=== PATIENT | male | born 1985 | race Caucasian/White ===

== ENCOUNTER 2017-04-06 20:03 | Inpatient (IN) | payer BC ==
--- NOTE | 2017-04-06 20:23 | ED ---
Psych HPI - General Source: patient, police, RN notes reviewed Mode of arrival: ambulatory Limitations: no limitations <Oli Moore - Last Filed: 04/06/17 22:22> <Tristen Iyer - Last Filed: 04/07/17 15:05> - General Chief Complaint: Psychiatric Symptoms Stated Complaint: Mental Health Time Seen by Provider: 04/06/17 20:13 - History of Present Illness Initial Comments: This a 31-year-old male presents emergency Department with a [facility] for psychiatric evaluation. Patient apparently tested his where he could be found . Patient was found in family barn with a gun. Patient did state that he was initiated himself. Patient states that he is depressed over his infidelity. Patient states he has not have a history of depression or any psychiatric issues. Denies any illicit drug use or alcohol abuse. Denies any physical complaints. (Oli Moore) - Related Data Home Medications Medication Instructions Recorded Confirmed No Known Home Medications [No 04/06/17 04/06/17 Known Home Medications] Allergies Allergy/AdvReac Type Severity Reaction Status Date / Time No Known Allergies Allergy Verified 04/06/17 20:25 Review of Systems ROS Other: All systems not noted in ROS Statement are negative. <Oli Moore - Last Filed: 04/06/17 22:22> ROS Other: All systems not noted in ROS Statement are negative. <Tristen Iyer - Last Filed: 04/07/17 15:05> ROS Statement: Those systems with pertinent positive or pertinent negative responses have been documented in the HPI. Past Medical History Additional Past Medical History / Comment(s): left leg injury. History of Any Multi-Drug Resistant Organisms: None Reported Additional Past Surgical History / Comment(s): left knee fusion Past Psychological History: No Psychological Hx Reported Smoking Status: Current every day smoker Past Alcohol Use History: None Reported Past Drug Use History: None Reported <Oli Moore - Last Filed: 04/06/17 22:22> General Exam Limitations: no limitations General appearance: alert, in no apparent distress Head exam: Present: atraumatic, normocephalic, normal inspection Eye exam: Present: normal appearance, PERRL, EOMI. Absent: scleral icterus, conjunctival injection, periorbital swelling ENT exam: Present: normal exam, normal oropharynx, mucous membranes moist, TM's normal bilaterally, normal external ear exam Neck exam: Present: normal inspection, full ROM. Absent: tenderness, meningismus, lymphadenopathy Respiratory exam: Present: normal lung sounds bilaterally. Absent: respiratory distress, wheezes, rales, rhonchi, stridor Cardiovascular Exam: Present: regular rate, normal rhythm, normal heart sounds. Absent: systolic murmur, diastolic murmur, rubs, gallop, clicks Neurological exam: Present: alert, oriented X3, CN II-XII intact Psychiatric exam: Present: flat affect Skin exam: Present: warm, dry, intact, normal color. Absent: rash <Oli Moore - Last Filed: 04/06/17 22:22> Medical Decision Making <Oli Moore - Last Filed: 04/06/17 22:22> - Lab Data Result diagrams: 04/06/17 23:06 04/06/17 23:06 <Tristen Iyer - Last Filed: 04/07/17 15:05> - Medical Decision Making Case is discussed with EPS, patient will be admitted for inpatient psychiatric care. Diagnosis: Depression, suicidal ideation (Tristen Iyer) - Lab Data Lab Results 04/06/17 04/06/17 04/06/17 Range/Units 21:10 23:06 23:06 WBC 10.0 (3.8-10.6) k/uL RBC 5.21 (4.30-5.90) m/uL Hgb 15.7 (13.0-17.5) gm/dL Hct 47.3 (39.0-53.0) % MCV 90.7 (80.0-100.0) fL MCH 30.1 (25.0-35.0) pg MCHC 33.2 (31.0-37.0) g/dL RDW 14.3 (11.5-15.5) % Plt Count 255 (150-450) k/uL Neutrophils % 59 % Lymphocytes % 32 % Monocytes % 6 % Eosinophils % 1 % Basophils % 1 % Neutrophils # 5.9 (1.3-7.7) k/uL Lymphocytes # 3.2 (1.0-4.8) k/uL Monocytes # 0.6 (0-1.0) k/uL Eosinophils # 0.1 (0-0.7) k/uL Basophils # 0.1 (0-0.2) k/uL Sodium 140 (137-145) mmol/L Potassium 4.2 (3.5-5.1) mmol/L Chloride 103 (98-107) mmol/L Carbon Dioxide 26 (22-30) mmol/L Anion Gap 11 mmol/L BUN 13 (9-20) mg/dL Creatinine 0.80 (0.66-1.25) mg/dL Est GFR (MDRD) Af Amer >60 (>60 ml/min/1.73 sqM) Est GFR (MDRD) Non-Af >60 (>60 ml/min/1.73 sqM) Glucose 94 (74-99) mg/dL Calcium 9.6 (8.4-10.2) mg/dL Total Bilirubin 0.5 (0.2-1.3) mg/dL AST 22 (17-59) U/L ALT 46 (21-72) U/L Alkaline Phosphatase 83 (38-126) U/L Total Protein 7.0 (6.3-8.2) g/dL Albumin 4.2 (3.5-5.0) g/dL Urine Opiates Screen Not Detected (NotDetected) Ur Oxycodone Screen Not Detected (NotDetected) Urine Methadone Screen Not Detected (NotDetected) Ur Propoxyphene Screen Not Detected (NotDetected) Ur Barbiturates Screen Not Detected (NotDetected) U Tricyclic Antidepress Not Detected (NotDetected) Ur Phencyclidine Scrn Not Detected (NotDetected) Ur Amphetamines Screen Not Detected (NotDetected) U Methamphetamines Scrn Not Detected (NotDetected) U Benzodiazepines Scrn Not Detected (NotDetected) Urine Cocaine Screen Not Detected (NotDetected) U Marijuana (THC) Screen Not Detected (NotDetected) Disposition Time of Disposition: 22:22 <Oli Moore M - Last Filed: 04/06/17 22:22> <Tristen Iyer - Last Filed: 04/07/17 15:05> Clinical Impression: Depression, Suicidal ideation Disposition: ADMITTED IP TO THIS HOSP Condition: Stable
[2017-04-06 23:20] LABS: Basophils # (A) 0.1 k/uL (0-0.2); Basophils % (A) 1 %; CH 31.1; CHCM 34.5; Eosinophils # (A) 0.1 k/uL (0-0.7); Eosinophils % (A) 1 %; HCT 47.3 % (39.0-53.0); HDW 2.45; HGB 15.7 gm/dL (13.0-17.5); Luc # (Auto) 0.19; Luc % (Auto) 2; Lymphocytes # (A) 3.2 k/uL (1.0-4.8); Lymphocytes % (A) 32 %; MCH 30.1 pg (25.0-35.0); MCHC 33.2 g/dL (31.0-37.0); MCV 90.7 fL (80.0-100.0); Mean Platelet Volume 7.3; Monocytes # (A) 0.6 k/uL (0-1.0); Monocytes % (A) 6 %; Neutrophils # (A) 5.9 k/uL (1.3-7.7); Neutrophils % (A) 59 %; RBC 5.21 m/uL (4.30-5.90); RDW 14.3 % (11.5-15.5); WBC (Perox) 9.33
[2017-04-06 23:29] LABS: ALT 46 U/L (21-72); AST 22 U/L (17-59); Alkaline Phosphatase 83 U/L (38-126); Anion Gap 11 mmol/L; Blood Urea Nitrogen 13 mg/dL (9-20); Calcium 9.6 mg/dL (8.4-10.2); Carbon Dioxide 26 mmol/L (22-30); Chloride 103 mmol/L (98-107); Glucose 94 mg/dL (74-99); Non-African American GFR(MDRD) >60 (>60 ml/min/1.73 sqM); Potassium 4.2 mmol/L (3.5-5.1); Sodium 140 mmol/L (137-145); Total Bilirubin 0.5 mg/dL (0.2-1.3)
[2017-04-07] MEDS ORDERED: MAG HYDROX/AL HYDROX/SIMETH 30 ML CUP PO PRN (16:00)
[2017-04-07] MEDS ORDERED: ACETAMINOPHEN TAB 325 MG TAB PO PRN (16:00)
[2017-04-07] MEDS ORDERED: ZIPRASIDONE 20 MG VIAL IM PRN (16:00)
[2017-04-07] MEDS ORDERED: LORazepam 1 MG TAB PO PRN (16:00)
[2017-04-07] MEDS ORDERED: MAGNESIUM HYDROXIDE 2,400 MG/10 ML CUP PO PRN (16:00)
--- NOTE | 2017-04-07 17:15 | P.HPMEDMHU ---
History of Present Illness H&P Date: 04/07/17 Chief Complaint: Suicidal ideations 31-year-old male with history of suicidal ideations. Patient says that he was caught cheating on his , and this elicited him having these feelings. Review of Systems All systems: negative Constitutional: Denies chills, Denies fever Eyes: denies blurred vision, denies pain Ears, nose, mouth and throat: Denies headache, Denies sore throat Cardiovascular: Denies chest pain, Denies shortness of breath Respiratory: Denies cough Gastrointestinal: Denies abdominal pain, Denies diarrhea, Denies nausea, Denies vomiting Musculoskeletal: Denies myalgias Integumentary: Denies pruritus, Denies rash Neurological: Denies numbness, Denies weakness Psychiatric: Denies anxiety, Denies depression Endocrine: Denies fatigue, Denies weight change Past Medical History Additional Past Medical History / Comment(s): left leg injury with lawnmower History of Any Multi-Drug Resistant Organisms: None Reported Additional Past Surgical History / Comment(s): left knee fusion Past Psychological History: No Psychological Hx Reported Smoking Status: Current every day smoker Past Alcohol Use History: None Reported Past Drug Use History: None Reported - Past Family History Father Family Medical History: Coronary Artery Disease (CAD) (has CABG at ageof 61) Medications and Allergies Home Medications Medication Instructions Recorded Confirmed Type No Known Home Medications [No 04/06/17 04/06/17 History Known Home Medications] Allergies Allergy/AdvReac Type Severity Reaction Status Date / Time No Known Allergies Allergy Verified 04/06/17 20:25 Physical Exam Vitals: Vital Signs Temp Pulse Pulse Resp BP BP Pulse Ox 04/07/17 15:29 98.7 F 60 16 113/79 04/07/17 06:28 64 16 134/62 100 04/07/17 02:35 74 16 108/79 100 04/06/17 22:53 16 04/06/17 20:08 99.6 F 80 16 158/91 98 - Constitutional General appearance: no acute distress - EENT Eyes: EOMI - Neck Neck: no lymphadenopathy - Cardiovascular Rhythm: regular Heart sounds: normal: S1, S2 - Gastrointestinal General gastrointestinal: no organomegaly, soft, no tenderness - Neurologic Neurologic: CNII-XII intact - Psychiatric Psychiatric: A&O x's 3, appropriate affect, intact judgment & insight patient has fixed knee post fusion. Cranial Nerve Examination - Cranial Nerves Cranial Nerve II- Optic: Intact Cranial Nerve III- Oculomotor: Intact Cranial Nerve IV- Trochlear: Intact Cranial Nerve V- Trigeminal: Intact Cranial Nerve - Abducens: Intact Cranial Nerve VII- Facial: Intact Cranial Nerve VIII- Auditory: Intact Cranial Nerve IX- Glossopharyngeal: Intact Cranial Nerve X- Vagus: Intact Cranial Nerve XI- Accessory: Intact Cranial Nerve XII- Hypoglossal: Intact Results CBC & Chem 7: 04/06/17 23:06 04/06/17 23:06 Assessment and Plan (1) Depression Narrative/Plan: Per psychiatry Status: Acute (2) Suicidal ideation Narrative/Plan: Per psychiatry Status: Acute
--- NOTE | 2017-04-08 13:57 | P.HP ---
Psychiatric H&P - . H&P Date: 04/08/17 History & Physical: Allergies Allergy/AdvReac Type Severity Reaction Status Date / Time No Known Allergies Allergy Verified 04/06/17 20:25 Vital Signs Temp 98.6 F 04/08/17 06:23 Pulse 60 04/08/17 06:23 Resp 18 04/08/17 06:23 BP 105/64 04/08/17 06:23 Pulse Ox 100 04/07/17 06:28 Laboratory Last Values WBC 10.0 k/uL (3.8-10.6) 04/06/17 23:06 RBC 5.21 m/uL (4.30-5.90) 04/06/17 23:06 Hgb 15.7 gm/dL (13.0-17.5) 04/06/17 23:06 Hct 47.3 % (39.0-53.0) 04/06/17 23:06 MCV 90.7 fL (80.0-100.0) 04/06/17 23:06 MCH 30.1 pg (25.0-35.0) 04/06/17 23:06 MCHC 33.2 g/dL (31.0-37.0) 04/06/17 23:06 RDW 14.3 % (11.5-15.5) 04/06/17 23:06 Plt Count 255 k/uL (150-450) 04/06/17 23:06 Neutrophils % 59 % 04/06/17 23:06 Lymphocytes % 32 % 04/06/17 23:06 Monocytes % 6 % 04/06/17 23:06 Eosinophils % 1 % 04/06/17 23:06 Basophils % 1 % 04/06/17 23:06 Neutrophils # 5.9 k/uL (1.3-7.7) 04/06/17 23:06 Lymphocytes # 3.2 k/uL (1.0-4.8) 04/06/17 23:06 Monocytes # 0.6 k/uL (0-1.0) 04/06/17 23:06 Eosinophils # 0.1 k/uL (0-0.7) 04/06/17 23:06 Basophils # 0.1 k/uL (0-0.2) 04/06/17 23:06 Sodium 140 mmol/L (137-145) 04/06/17 23:06 Potassium 4.2 mmol/L (3.5-5.1) 04/06/17 23:06 Chloride 103 mmol/L (98-107) 04/06/17 23:06 Carbon Dioxide 26 mmol/L (22-30) 04/06/17 23:06 Anion Gap 11 mmol/L 04/06/17 23:06 BUN 13 mg/dL (9-20) 04/06/17 23:06 Creatinine 0.80 mg/dL (0.66-1.25) 04/06/17 23:06 Est GFR (MDRD) Af Amer >60 (>60 ml/min/1.73 sqM) 04/06/17 23:06 Est GFR (MDRD) Non-Af >60 (>60 ml/min/1.73 sqM) 04/06/17 23:06 Glucose 94 mg/dL (74-99) 04/06/17 23:06 Calcium 9.6 mg/dL (8.4-10.2) 04/06/17 23:06 Total Bilirubin 0.5 mg/dL (0.2-1.3) 04/06/17 23:06 AST 22 U/L (17-59) 04/06/17 23:06 ALT 46 U/L (21-72) 04/06/17 23:06 Alkaline Phosphatase 83 U/L (38-126) 04/06/17 23:06 Total Protein 7.0 g/dL (6.3-8.2) 04/06/17 23:06 Albumin 4.2 g/dL (3.5-5.0) 04/06/17 23:06 Urine Opiates Screen Not Detected (NotDetected) 04/06/17 21:10 Ur Oxycodone Screen Not Detected (NotDetected) 04/06/17 21:10 Urine Methadone Screen Not Detected (NotDetected) 04/06/17 21:10 Ur Propoxyphene Screen Not Detected (NotDetected) 04/06/17 21:10 Ur Barbiturates Screen Not Detected (NotDetected) 04/06/17 21:10 U Tricyclic Antidepress Not Detected (NotDetected) 04/06/17 21:10 Ur Phencyclidine Scrn Not Detected (NotDetected) 04/06/17 21:10 Ur Amphetamines Screen Not Detected (NotDetected) 04/06/17 21:10 U Methamphetamines Scrn Not Detected (NotDetected) 04/06/17 21:10 U Benzodiazepines Scrn Not Detected (NotDetected) 04/06/17 21:10 Urine Cocaine Screen Not Detected (NotDetected) 04/06/17 21:10 U Marijuana (THC) Screen Not Detected (NotDetected) 04/06/17 21:10 04/08/17 13:20 IDENTIFYING DATA: Pt is a 31 yo CM who was living in [place], [place] with his and three children. Presented to ED after petition filed by his due to suicidal gesture by patient. HPI: Upon presentation, pt states that he does not feel that he has been depressed or sad, but "more so unhappy" with himself. He states that he has been unfaithful to his for the past 2 years, which has caused him a lot of feelings of guilt. Pt reports that he went on a [place] trip this weekend and while out of town, lost his phone; subsequently, his changed all of the accounts to prevent anyone that might access his phone from having access to everything. When she did this, pt reports that his found evidence of his infidelity. She confronted patient with this information via telephone that Friday. Patient states that on Friday while driving back home from his trip, he began to plan his suicide as he did not want to face his and family members after they discovered what he had been doing. He states that he went to a barn ~4 miles from their home, where his had gathered several family members from both sides to discuss the infidelity with him. He further states that he did point the gun to his head at some point while in the barn and contemplating suicide but never took the gun off of safety. Pt states that he wrote his a letter and sent it to her immediately prior to when he felt he would go through with the attempt, but after sending he thought of "my kids, purgatory, burning in hell" and could not follow through with his plan. Pt states that he was aware that his family would be coming shortly to intervene so he awaited their arrival. Pt denies any previous suicide attempts and felt that this was more of an impulsive act to escape his current life stressors. Reports that he did not have a long-standing suicide plan and began experiencing SI after talking to his that Friday morning. He now denies suicidal ideations as well and states that his kids are his protective factor. According to patient, he no longer has access to firearms as he gave his family members the code to his safe and the guns were removed. As stated above, pt denies depressed mood at this time. He does report that he has been dealing with some work related stressors and marital discord for some time now. Reports that there has been tension in his marriage and difficulty with intimacy that he believes led up to his infidelity. He denies any other depressive symptoms. States that he has been sleeping well, denies anhedonia ( decrease in engagement in activities due to lack of time and life demands), has good concentration, appetite and energy. No reported feelings of hopelessness but did report occasional feelings of worthlessness stemming from guilt about his infidelity. PAST PSYCHIATRIC HISTORY: has had some counseling in early 20s due to a DUI PMH: LLE injury from lawnmower accident at age 5 PSH: repair to LLE (multiple surgeries) and vasectomy 1 mo ago MEDICATIONS: none CHEMICAL DEPENDENCY HISTORY: denies use of ETOH and illicit substances at this time FAMILY PSYCHIATRIC HISTORY: none FAMILY CHEMICAL DEPENDENCY HISTORY: none SOCIAL HISTORY: Pt was born and raised in [place], [place]. Has two older brothers. Describes childhood as "alright" and denies h/o abuse. Did attend 3 semesters of college. Employed in [employer], [employer]. No experience. Has had a DUI in his early 20s and denies any other legal charges. Currently x 8 yrs and has three children. Identifies as Sikh. MENTAL STATUS EXAM: Pt is a 31yo M who appears stated age and well-groomed. He has cooperative behavior and calm attitude. Eye contact is good. Speech is spontaneous and with normal rate, rhythm and volume. Mood is "unhappy" and affect is appropriate. Denies SI and HI at this time. Denies AVH. Concentration intact. Memory grossly intact. Oriented x 3. Thought Process is linear and logical. Judgment impaired, insight fair. STRENGTHS/WEAKNESSES: strong family support system, fair insight/maladaptive coping skills INTELLECTUAL FUNCTIONING: average ASSESSMENT: 1. Adjustment Disorder with mixed disturbance of emotions and conduct 2. Relationship Distress with Spouse PLAN: Patient admitted on a petition filed by his . He later signed in voluntarily. Will place on routine precautions and continue to monitor safety. Discussed the option of initiating medications, specifically antidepressants for mood; however, pt opposed to this option at this time. He is interested in establishing individual therapy treatment upon discharge. Encourage patient to attend group activities on the unit. SW to contact family for collateral information and discharge planning as he may not be able to go back home with after discharge from the unit. 04/08/17 13:42
--- NOTE | 2017-04-09 17:52 | P.PN ---
Progress Note - Text Progress Note Date: 04/09/17 31yo CM admitted on 04/07/17 due to suicidal gesture Last 24hrs: Upon presentation this morning, pt states that his mood is "good". He is anxious to be discharged from unit but cooperative with treatment plan. Pt has been attending groups and feels that he has learned more about positive thinking. Continues to adamantly deny SI at this time. SW spoke with patient' s [id number] who informed her that patient's family is very supportive and will continue to monitor him for safety once discharged. They are comfortable with patient returning home. MSE: Pt appears stated age, well-groomed and ambulating with slight limp. He is pleasant and cooperative. His speech is spontaneous and with regular rate, rhythm and volume. Pt has good eye contact. Mood stated as "good". Affect is appropriate. Denies SI and HI. Thought process is linear and logical. Memory is grossly intact. Judgment and insight is fair. Assessment: 1. Adjustment disorder with mixed disturbance of emotions and conduct 2. Relationship distress with spouse Plan: Continue to monitor for safety. Patient opposed to medication management at this time. Encourage participation in group activities on the unit. Discuss discharge planning with treatment team and plan to DC tomorrow. SW to assist with f/u including establishment with individual therapy.
[2017-04-10 06:40] VITALS: BP 120/63; PULSE 75; RESP 16; TEMP 97.9
--- NOTE | 2017-04-10 09:32 | P.PN ---
Progress Note - Text Progress Note Date: 04/10/17 31yo CM admitted on 04/07/17 due to suicidal gesture Last 24hrs: Upon presentation this morning, pt states that his mood is "good". No acute problems overnight. Pt has been attending groups and appreciates the goal setting activities. Continues to adamantly deny SI at this time. Planning to stay with his parents upon discharge. MSE: Pt appears stated age, well-groomed and ambulating with slight limp. He is pleasant and cooperative. His speech is spontaneous and with regular rate, rhythm and volume. Pt has good eye contact. Mood stated as "good". Affect is appropriate. Denies SI and HI. Thought process is linear and logical. Memory is grossly intact. Judgment and insight is fair. Assessment: 1. Adjustment disorder with mixed disturbance of emotions and conduct 2. Relationship distress with spouse Plan: Discharge today. Patient to follow-up with counseling to develop more adaptive coping skills.
--- NOTE | 2017-05-11 12:03 | P.DS ---
Providers Date of admission: 04/07/17 15:02 Expected date of discharge: 04/10/17 Attending physician: Cosmo Cheney DO Consults: 04/07/17 16:00 Consult Physician Routine Consulting Provider: [facility] Consult Reason/Comments: H and P Do you want consulting provider notified?: Yes Primary care physician: Physician Nonstaff - Discharge Diagnosis(es) (1) Adjustment disorder with mixed disturbance of emotions and conduct Status: Acute Hospital Course: Upon admission, patient adamantly denied suicidal thoughts and continued to deny SI throughout hospitalization. Discussed the options of initiating treatment with an antidepressant; however, pt was opposed to this option. Therefore, he was not started on any scheduled psychotropic medications. All guns were removed from patient's home at time of admission. Patient participated in group sessions on the unit and felt that they were helpful in improving his positive thinking. SW spoke with patient's family and was informed that pt had a huge support system and would continue to be monitored for safety by family upon discharge. They felt comfortable with patient being discharged and arranged for him to stay with his parents as his did not want him returning to their home at this time. On day of discharge patient continued to deny SI. He was sleeping and eating well on the unit. Remained cooperative and did not display any disruptive behaviors throughout his hospital stay. Patient was interested in initiating individual psychotherapy following discharge and an initial intake for counseling was scheduled by social work. Patient Condition at Discharge: Stable Plan - Discharge Summary New Discharge Prescriptions: Continue No Known Home Medications [No Known Home Medications] Discharge Medication List No Known Home Medications [No Known Home Medications] 04/06/17 [History] Follow up Appointment(s)/Referral(s): [facility] [Outside] - 04/14/17 11:00 am (Lev Sullivan) Nonstaff,Physician [Primary Care Provider] - 1-2 days Patient Instructions/Handouts: Depression (GEN), Suicide Prevention for Adults (GEN) Activity/Diet/Wound Care/Special Instructions: Activity and diet as tolerated. Avoid the use of street drugs and alcohol. Take all medications as prescribed. When you are in need of refills on your medications please contact your medical provider and/or outpatient psychiatrist to have this done. Please go to scheduled outpatient appointment for aftercare treatment. If symptoms return or become worse call the crisis line at [phone] and/or go to the nearest emergency room for an evaluation. Discharge Disposition: HOME SELF-CARE
== END 2017-04-10 12:43 | disposition home or self-care (01) | DRG 882 ==
LOC: EC 20:03 → 3MHU 04-07 15:02
PROVIDERS: ADMIT Psychiatry & Neurology Psychiatry; ATTEND Psychiatry & Neurology Psychiatry
DX: F43.25 Adjustment disorder with mixed disturbance of emotions and conduct (principal); R45.851 Suicidal ideations; F17.200 Nicotine dependence, unspecified, uncomplicated; Z63.0 Problems in relationship with spouse or partner
CPT/HCPCS: 36415; 80053; 80306; 82075; 85025; 99285